=== PATIENT | female | born 1930 | race Caucasian/White ===

== ENCOUNTER 2019-07-06 14:11 | Outpatient (CLI) | payer MEDICARE, OTHER ==
--- NOTE | 2019-07-06 17:05 | ULT ---
VENOUS DOPPLER ULTRASOUND OF THE RIGHT LOWER EXTREMITY 07/06/19 HISTORY: Right lower extremity pain and edema. TECHNIQUE: Lee scale, color flow and spectral Doppler imaging of the deep venous system of the right lower extr emity is performed. FINDINGS: There is absence of flow and compression due to occlusive clot involving the right mid femoral, popli teal, and posterior tibial veins. The remainder of the deep venous system is otherwise patent. IMPRESSION: Deep venous thrombosis of the right lower extremity. Discussed over the telephone with Dr. Hlaey Palacios at 2:44 p.m.
== END 2019-07-06 14:12 | disposition home or self-care (01) ==
LOC: BICULT 14:11
PROVIDERS: ATTEND Internal Medicine Medical Oncology
DX: M79.604 Pain in right leg (principal); R60.0 Localized edema; D46.A Refractory cytopenia with multilineage dysplasia; I82.441 Acute embolism and thrombosis of right tibial vein; I82.431 Acute embolism and thrombosis of right popliteal vein; I82.411 Acute embolism and thrombosis of right femoral vein
CPT/HCPCS: 36415; 80053; 82248; 83615; 84100; 84550; 85610; 85730

== ENCOUNTER 2019-08-17 09:28 | Day surgery (SDC) | payer MEDICARE, OTHER ==
[2019-08-17] MEDS ORDERED: Sodium Chloride 0.9% 20 ML ONE (09:46)
[2019-08-17] MEDS ORDERED: diphenhydrAMINE 25 MG CAP PO SCH (10:00)
[2019-08-17] MEDS ORDERED: Acetaminophen 500 MG TAB PO SCH (10:00)
[2019-08-17] MEDS ORDERED: Dexamethasone 4 mg/ml Vial SLOW IVP SCH (10:00)
[2019-08-17 17:14] VITALS: BP 145/61; TEMP 98.8
[2019-08-17 20:14] LABS: Reflex for Review?? NO
[2019-08-17 20:16] LABS: White Blood Cell (WBC) Count 0.7 thou/uL (4.8-10.8)
[2019-08-17 20:31] LABS: Band 8 % (5-11); Hemoglobin 9.5 g/dL (12.0-16.0); Lymphocytes 56 % (21-51); MDiff Complete? YES; Mean Corpuscular HGB CONC 35.3 g/dL (32.0-36.0); Mean Corpuscular Hemoglobin 32.7 pg (27.0-31.0); Mean Corpuscular Volume 92.7 fL (78.0-98.0); Mean Platelet Volume 6.3 fL (7.4-10.4); Monocytes 12 % (0-10); Neutrophil 24 % (42-75); Platelet Count 44 thou/uL (130-400); Platelet Morphology Comment Appears Decreased; Red Blood Cell (RBC) Count 2.89 mill/uL (4.20-5.40)
== END 2019-08-17 17:15 | disposition home or self-care (01) ==
LOC: ONC/OP 09:28
PROVIDERS: ATTEND Internal Medicine Medical Oncology
PROC: 30233N1 Transfusion of Nonautologous Red Blood Cells into Peripheral Vein, Percutaneous Approach (ICD-10-PCS; principal; 2019-08-17)
DX: D64.9 Anemia, unspecified (principal)
CPT/HCPCS: 36430; 85025; 86850; 86900; 86901; 96374; J1100; P9016; Q0163